=== PATIENT | female | born 1955 | race Caucasian/White ===

== ENCOUNTER → 2016-08-19 | Day surgery (SDC) | payer OTHER ==
--- NOTE | 2016-08-19 09:55 | MA ---
Specimen radiography. Findings: The specimen radiograph contains the targeted Suros biopsy site marker. The tip of the loca lization needle is also contained within the specimen. Impression: The targeted Suros marker is contained within the specimen. A report was called to Dr. Lisa Herman in the operating room. Graft
--- NOTE | 2016-08-19 17:58 | MA ---
Mammographically Guided Needle Localization Right Breast Reason for examination: Preoperative localization for biopsy proven breast cancer. Technique: Informed consent was obtained. Utilizing mammographic guidance and following sterile prepa ration and local anesthesia, the hookwire localization needle was advanced to the biopsy site. The fi nal films demonstrate the wire to be adjacent to the biopsy site marker with the jamie 2 cm distal to the biopsy site marker. The films were available in the Operating Room. Impression: Preoperative localization of the biopsy site in the right breast.
== END | disposition home or self-care (01) ==
LOC: FIMAGING 07:19
PROVIDERS: ATTEND Surgery
DX: C50.411 Malignant neoplasm of upper-outer quadrant of right female breast (principal)

== ENCOUNTER → 2016-09-18 | Outpatient (CLI) | payer OTHER ==
[~2016-09-18] MED LIST: GADOBUTROL 10 ML VIAL IVP ONE
== END ==
LOC: FIMAGING 14:06
PROVIDERS: ATTEND Internal Medicine Hematology & Oncology
DX: Z08 Encounter for follow-up examination after completed treatment for malignant neoplasm (principal); Z85.3 Personal history of malignant neoplasm of breast
CPT/HCPCS: 0159T; 77059; A9585; C8908

== ENCOUNTER → 2017-02-22 | Outpatient (CLI) | payer OTHER | LOC: FIMAGING 07:09 | PROVIDERS: ATTEND Internal Medicine Hematology & Oncology | DX: Z08 Encounter for follow-up examination after completed treatment for malignant neoplasm (principal); Z85.3 Personal history of malignant neoplasm of breast | CPT/HCPCS: 0159T; 77059; A9585; C8908 ==

== ENCOUNTER → 2017-02-23 | Outpatient (CLI) | payer OTHER | LOC: FIMAGING 08:07 | PROVIDERS: ATTEND Internal Medicine Hematology & Oncology | DX: Z12.39 Encounter for other screening for malignant neoplasm of breast (principal) | CPT/HCPCS: G0204 ==

== ENCOUNTER → 2017-04-06 | Outpatient (CLI) | payer OTHER | LOC: FIMAGING 13:17 | PROVIDERS: ATTEND Family Medicine | DX: Z13.820 Encounter for screening for osteoporosis (principal); M85.80 Other specified disorders of bone density and structure, unspecified site ==